=== PATIENT | male | born 1995 | race Caucasian/White ===

== ENCOUNTER 2017-05-28 16:21 | Emergency (ER) | payer BC, OTHER ==
[2017-05-28 16:32] VITALS: BP 140/100; PULSE 96; RESP 18; TEMP 98.1; O2SAT 98
--- NOTE | 2017-05-28 17:25 | EDPHY ---
H & P Stated Complaint: Rolled L ankle today Time Seen by Provider: 05/28/17 17:10 HPI/ROS: CHIEF COMPLAINT: Left ankle injury HISTORY OF PRESENT ILLNESS: The patient presents to the ED with complaints of left lateral ankle pain and swelling. The patient rolled his ankle while running today. The patient denies any additional complaints of knee pain, back pain, numbness or weakness. The patient reports moderate pain with ambulation. REVIEW OF SYSTEMS: Neuro: no headache, numbness, weakness Musculoskeletal: as above Skin: no abrasion or lacerations Source: Patient Exam Limitations: No limitations - Personal History Current Tetanus Diphtheria and Acellular Pertussis (TDAP): Yes - Medical/Surgical History Hx Asthma: No Hx Chronic Respiratory Disease: No Hx Diabetes: No Hx Cardiac Disease: No Hx Renal Disease: No Hx Cirrhosis: No Hx Alcoholism: No Hx HIV/AIDS: No Hx Splenectomy or Spleen Trauma: No Other PMH: fx both arms/lyme disease. sprained L ankle - Social History Smoking Status: Never smoked - Physical Exam Exam: General appearance: alert no distress Left ankle: There is swelling and tenderness over the lateral malleolus. Ankle joint is stable and there is no tenderness over the Achilles tendon. The foot is nontender without swelling. Neurologic exam: The patient has normal sensation and motor function distal to the injury. Vascular exam: Normal pulses and capillary refill in the foot DIFFERENTIAL DIAGNOSIS: After history and physical exam differential diagnosis was considered for ankle injury including sprain, fracture, dislocation and soft tissue injury. Constitutional: Initial Vital Signs Temperature (C) 36.7 C 05/28/17 16:23 Heart Rate 96 05/28/17 16:23 Respiratory Rate 18 05/28/17 16:23 Blood Pressure 140/100 H 05/28/17 16:23 O2 Sat (%) 98 05/28/17 16:23 O2 Delivery Mode Room Air Allergies/Adverse Reactions: doxycycline Allergy (Verified 05/28/17 16:23) sulfamethoxazole [From Bactrim] Allergy (Verified 05/28/17 16:23) trimethoprim [From Bactrim] Allergy (Verified 05/28/17 16:23) Home Medications: Medication Instructions Recorded NK [No Known Home Meds] 05/28/17 Medical Decision Making - Diagnostics Imaging Results: Left ankle x-ray: Images reviewed by myself and discussed with radiologist, very small 1 mm avulsion fracture of undetermined chronicity. Lateral soft tissue swelling present ED Course/Re-evaluation: The patient presents to the ED for evaluation of left ankle pain and swelling. There is no evidence of a surgical fracture. He does have a very small 1 mm avulsion fracture of unknown chronicity. The patient will be placed in a [place]cin[employer] boot and given crutches. He is advised to weight bear as tolerated. The patient will be referred to our on-call orthopedic surgeon for any pain which persists past 5-7 days. He is discharged home with customary aftercare instructions and return precautions. Departure - Departure Disposition: Home, Routine, Self-Care Clinical Impression: Ankle sprain Condition: Good Instructions: Ankle Sprain (ED) Additional Instructions: 1. Take Ibuprofen or Motrin 600 mg by mouth three times a day. 2. Crutches and knee immobilizer as needed for comfort. 3. Please schedule a follow-up appointment with the orthopedic surgeon you have been referred to for any pain which persists past 7 days as this may be the sign of a more significant injury. Referrals: Adolfo Osman MD [Medical Doctor] - As per Instructions
== END 2017-05-28 18:09 | disposition home or self-care (01) ==
DX: S93.402A Sprain of unspecified ligament of left ankle, initial encounter (principal); X50.9XXA Other and unspecified overexertion or strenuous movements or postures, initial encounter; Y93.02 Activity, running
CPT/HCPCS: L4386

== ENCOUNTER → 2018-05-09 | Outpatient (CLI) | payer OTHER ==
[~2018-05-09] MED LIST: IOPAMIDOL (ISOVUE 370) 100 ML BTL IV ONE; LIDOCAINE 1% 300 MG/30 ML SDV ONE
== END ==
LOC: FIMAGING 10:19
PROVIDERS: ATTEND Podiatrist
PROC: 3E0U3KZ Introduction of Other Diagnostic Substance into Joints, Percutaneous Approach (ICD-10-PCS; principal; 2018-05-09)
DX: S93.144A Subluxation of metatarsophalangeal joint of right lesser toe(s), initial encounter (principal); X58.XXXA Exposure to other specified factors, initial encounter
CPT/HCPCS: Q9967